=== PATIENT | male | born 1990 | race Caucasian/White ===

== ENCOUNTER 2024-05-31 19:18 | Emergency (ER) | payer MEDICAID, SELFPAY ==
--- NOTE | 2024-05-31 | ECG_ITS ---
Test Reason : CP Blood Pressure : */* mmHG Vent. Rate : 78 BPM Atrial Rate : 78 BPM P-R Int : 152 ms QRS Dur : 132 ms QT Int : 410 ms P-R-T Axes : 64 66 34 degrees QTcB Int : 467 ms Normal sinus rhythm with sinus arrhythmia Right bundle branch block Septal infarct , age undetermined Abnormal ECG No previous ECGs available Referred By: Generic ED Physician Electronically Signed By: ROSMERY COPELAND MD
--- NOTE | ~2024-05-31 | XR_ITS ---
CLINICAL HISTORY: cp Single view of the chest. Findings: Heart size is normal. There is no consolidation. No pleural effusions are seen. Impression: No acute abnormalities. This document has been electronically signed by: Abdias James MD on 05/31/2024 20:19:26
[2024-05-31 19:24] VITALS: BP 113/41; BP 137/86; PULSE 70; PULSE 74; RESP 16; TEMP 36.6; O2SAT 95; O2SAT 98; BMI 22.1
[2024-05-31 19:42] LABS: MANUAL DIFF FLAG NO
[2024-05-31 19:43] LABS: Basophils Percent Auto 0.3 % (0-2); Eosinophils Absolute Auto 0.2 X10*3/uL (0.0-0.4); Eosinophils Percent Auto 2.4 % (0-4); Hematocrit 39.6 % (42.0-52.0); Hemoglobin 13.1 g/dl (14.0-18.0); Imm Gran Abs Auto 0.02 X10*3/uL (0.00-0.03); Imm Gran Pct Auto 0.3 % (0.0-0.4); Lymphocytes Absolute Auto 2.8 X10*3/uL (1.2-4.9); Lymphocytes Percent Auto 39.5 % (20-40); Mean Corpuscular HGB Conc 33.1 g/dl (31.0-36.0); Mean Corpuscular Hemoglobin 28.9 pg (27.0-33.0); Mean Corpuscular Volume 87.4 fL (80.0-98.0); Mean Platelet Volume 8.9 fL (9.4-12.4); Monocytes Absolute Auto 0.5 X10*3/uL (0.1-1.2); Monocytes Percent Auto 7.4 % (2-11); Neutrophils Absolute Auto 3.5 x10*3/uL (2.0-8.3); Neutrophils Percent Auto 50.1 % (45-73); Platelet Count 202 X10*3/uL (160-400); Red Blood Count 4.53 X10*6/uL (4.60-5.80); Red Cell Distribution Width 14.6 % (11.0-16.0)
[2024-05-31 19:58] LABS: Alanine Aminotransferase 9 U/L (0-40); Alkaline Phosphatase 78 U/L (39-117); Anion Gap 13 (12-20); Aspartate Amino Transferase 37 U/L (5-37); Bilirubin Total 0.2 mg/dL (0.0-1.0); Blood Urea Nitrogen 11 mg/dL (9-16); Carbon Dioxide 26 mmol/L (22-29); Chloride 106 mmol/L (96-108); Creatinine Clr Calc Pharmacy 151.1; Estimated Glomerular Filt Rate > 60; Glucose Random 122 mg/dL (60-115); Sodium 141 mmol/L (135-145); Total Protein 7.5 g/dL (6.5-8.0)
[2024-05-31 20:08] LABS: Troponin-I High Sensitivity < 2.7 ng/L (<3.5-35.0)
[2024-05-31 20:19] LABS: Influenza A PCR NEGATIVE (Negative); Influenza B PCR NEGATIVE (Negative); Resp Syncy Virus RNA Qual PCR NEGATIVE (Negative); SARS COV2 PCR INHOUSE NEGATIVE (Negative)
--- NOTE | 2024-05-31 20:22 | ED.CHESTPAIN ---
HPI - Chest Pain General Chief Complaint: Chest Pain Stated Complaint: chest pain, in PD custody Time Seen by Provider: 05/31/24 20:21 Source: patient and police Mode of arrival: EMS Limitations: no limitations History of Present Illness ED Provider: Brandon Montejo DO HPI narrative: 33-year-old male with reported past medical history of coronary artery disease status post 2 stents (noncompliant on antiplatelet therapy) as well as polysubstance abuse currently using fentanyl, heroin and benzodiazepines who presents to the emergency department in police custody after developing left-sided sharp and pressure chest pain that radiates to his left armpit, onset approximately 5 hours ago. Patient reports some improvement with pain after receiving nitroglycerin from EMS. He states the pain has returned and is currently a 6/10 in severity, previously a 9/10. He denies any trauma. Police report that he had a warrant for arrest and has been compliant with them with no physical altercation. The patient denies associated symptoms with the exception of ?withdrawing from polysubstances. He states he has previously on methadone but ?slipped up? and is not currently on this medication. Related Data Allergies Allergy/AdvReac Type Severity Reaction Status Date / Time Penicillins [PCN] Allergy Unknown UNKNOWN Verified 05/31/24 19:28 Review of Systems Review of Systems: Yes all other systems are reviewed and are negative PMFSH Social History Social History Advance Directives: No Advance Directives Information Provided: No Do you have a plan to hurt others: No Plan Physical Exam Vital Signs: Vital Signs: Last Vital Signs Temp 98 F 05/31/24 19:24 Pulse 74 05/31/24 19:24 Resp 16 05/31/24 19:24 BP 113/41 L 05/31/24 19:24 Pulse Ox 95 05/31/24 19:24 O2 Del Method Room Air 05/31/24 19:24 BMI result Body Mass Index 22.1 Constitutional: ?Resting comfortably with blanket over his head. Alert, oriented, speaking in full sentences, appears mildly uncomfortable HEENT: ?Normocephalic, atraumatic. ?Moist mucous membranes Eyes: ?PERRL, EOMI Neck: ?Supple, nontender Chest: ?No chest wall tenderness Respiratory: ?Lungs clear to auscultation, no increased work of breathing Cardio: ?Regular rate and rhythm, no murmur, 2+ radial and DP pulses symmetrically GI: ?Soft, nondistended, nontender Back: ?Normal range of motion, nontender Skin: ?No rash, no lesions Neuro: ?Alert and oriented to person, place and time, moves all 4 extremities, no focal deficits Extremities: ?No swelling or tenderness, full range of motion Psych: ?Calm, alert and cooperative, appropriate behavior Medical Decision Making Medical Decision Making [facility] Narrative: 33-year-old male presenting with chest pain, atraumatic. Upon arrival he does endorse some nausea to me and feels he is starting his withdrawals. I administered a dose of lorazepam for his nausea. He has had 5 hours of chest pain with a nonischemic ECG and initial troponin that is unremarkable. Although he has a reported history of coronary artery disease, given his workup including unremarkable labs and chest x-ray, I do not suspect ACS at this time. His symptoms may be contributed by his withdrawals. We will repeat troponin and if unremarkable, patient could be discharged in police custody. Second troponin unremarkable. Patient not requiring further care. Return precautions provided. Admission/Observation Consideration of admission/observation: Escalation of care including admission/observation considered Lab Data [facility] Lab Attestation statement: I reviewed the patient's lab results. Unremarkable CBC, unremarkable BMP, negative respiratory swab. 05/31/24 19:38 05/31/24 19:38 Labs: Lab Results 05/31/24 05/31/24 Range/Units 19:37 19:38 WBC 7.0 (4.8-10.8) X10*3/uL RBC 4.53 L (4.60-5.80) X10*6/uL Hgb 13.1 L (14.0-18.0) g/dl Hct 39.6 L (42.0-52.0) % MCV 87.4 (80.0-98.0) fL MCH 28.9 (27.0-33.0) pg MCHC 33.1 (31.0-36.0) g/dl RDW 14.6 (11.0-16.0) % Plt Count 202 (160-400) X10*3/uL MPV 8.9 L (9.4-12.4) fL Immature Gran % (Auto) 0.3 (0.0-0.4) % Neut % (Auto) 50.1 (45-73) % Lymph % (Auto) 39.5 (20-40) % Lane % (Auto) 7.4 (2-11) % Eos % (Auto) 2.4 (0-4) % Baso % (Auto) 0.3 (0-2) % Lymph # (Auto) 2.8 (1.2-4.9) X10*3/uL Lane # (Auto) 0.5 (0.1-1.2) X10*3/uL Eos # (Auto) 0.2 (0.0-0.4) X10*3/uL Baso # (Auto) 0.0 (0.0-0.2) X10*3/uL Abs Immat Gran (auto) 0.02 (0.00-0.03) X10*3/uL Absolute Neuts (auto) 3.5 (2.0-8.3) x10*3/uL Absolute Nucleated RBC 0.000 (0.0-0.012) X10*3/uL Nucleated RBC % (auto) 0.0 (0.0-0.2) /100WBC Sodium 141 (135-145) mmol/L Potassium 4.0 (3.3-5.1) mmol/L Chloride 106 (96-108) mmol/L Carbon Dioxide 26 (22-29) mmol/L Anion Gap 13 (12-20) BUN 11 (9-16) mg/dL Creatinine 0.68 (0.5-1.4) mg/dL Estim Creat Clear Calc 151.1 Estimated GFR > 60 Random Glucose 122 H (60-115) mg/dL Calcium 9.0 (8.4-10.2) mg/dL Total Bilirubin 0.2 (0.0-1.0) mg/dL AST 37 (5-37) U/L ALT 9 (0-40) U/L Alkaline Phosphatase 78 (39-117) U/L Troponin I High Sens < 2.7 (<3.5-35.0) ng/L Total Protein 7.5 (6.5-8.0) g/dL Albumin 4.0 (3.5-5.0) g/dL Influenza Type A (PCR) NEGATIVE (Negative) Influenza Type B (PCR) NEGATIVE (Negative) RSV RNA Qual (PCR) NEGATIVE (Negative) SARS-CoV-2 RNA (RT-PCR) NEGATIVE (Negative) Independent Interpretation I performed an independent interpretation of an: EKG and Plain X-Ray (Chest x-ray per my independent interpretation shows no acute cardiopulmonary abnormalities.) Interpretation: Normal sinus rhythm at 78 beats per minute, borderline prolonged QTC, right bundle-branch block, no diagnostic ST or T-wave abnormalities otherwise, no prior for comparison. Radiology Impression Discussion of test interpretation with radiology: I have reviewed the radiologist's reading. Discharge Plan Discharge Clinical Impression: Chest pain Qualifiers: Chest pain type: unspecified Qualified Code(s): R07.9 - Chest pain, unspecified Patient Disposition: Home, Self-Care Instructions: Chest Pain (ED) Additional Instructions: You have been evaluated in the emergency department for chest pain today.? Although it was determined that there was not an immediately life threatening cause for your chest pain, it is very important that you follow up with your primary care physician.? Further cardiac (heart) testing may be recommended. Please be aware that if your condition changes or worsens in any way while, you should return to the emergency department immediately for further care.? This is especially true for worsening / recurrent pain, shortness of breath, vomiting, sweating, palpitations, lightheadedness or passing out.? These may be signs of an emergency condition and you should call 911 if these symptoms occur. Print Language: Irish
[2024-05-31] MEDS: LORazepam 2 MG/ML VIAL 1 MG IVPUSH (21:12)
[2024-05-31 21:17] LABS: Troponin-I High Sensitivity < 2.7 ng/L (<3.5-35.0)
[2024-05-31 21:40] VITALS: BP 113/41; PULSE 74; RESP 16; TEMP 36.6; O2SAT 95
== END 2024-05-31 21:50 | disposition home or self-care (01) ==
PROVIDERS: Emergency Provider Emergency Medicine
DX: R07.89 Other chest pain (principal); M79.602 Pain in left arm; R11.0 Nausea; I49.8 Other specified cardiac arrhythmias; I45.10 Unspecified right bundle-branch block; Z91.148 Patient's other noncompliance with medication regimen for other reason; Z03.818 Encounter for observation for suspected exposure to other biological agents ruled out
CPT/HCPCS: 0241U; 36415; 71045; 80053; 84484; 85025; 93005; 96374; 99283; 99284; J2060

== ENCOUNTER → 2024-05-31 19:24 | Outpatient (BNV) | payer MEDICAID, SELFPAY | PROVIDERS: Emergency Provider Emergency Medicine; Visit Provider Internal Medicine Cardiovascular Disease | DX: I45.10 Unspecified right bundle-branch block (principal); I49.9 Cardiac arrhythmia, unspecified | CPT/HCPCS: 93010 ==

== ENCOUNTER → 2024-05-31 20:00 | Outpatient (BNV) | payer MEDICAID, SELFPAY | PROVIDERS: Emergency Provider Emergency Medicine; Visit Provider Radiology Diagnostic Radiology | DX: R07.9 Chest pain, unspecified (principal) | CPT/HCPCS: 71045 ==